=== PATIENT | female | born 1975 | race Caucasian/White ===

== ENCOUNTER 2019-12-31 09:53 | Day surgery (SDC) | payer OTHER ==
[~2019-12-31] VITALS: Ht 162.6 cm; Wt 81.6 kg
[2020-01-01] MEDS ORDERED: Tylenol #3 PO (08:28)
== END 2020-01-01 08:00 | disposition home or self-care (01) ==
LOC: SURH 09:53 → CIR.AMB 09:53 → O/R 09:53 → OB/GYN 10:30 → O/R 10:30 → OB/GYN 12:04 → SURH 14:45 → CIR.AMB 01-01 08:00 → OB/GYN 01-01 12:05
PROVIDERS: ATTEND Obstetrics & Gynecology
DX: D25.1 Intramural leiomyoma of uterus (principal); N72 Inflammatory disease of cervix uteri; N81.5 Vaginal enterocele